=== PATIENT | female | born 1975 | race Caucasian/White ===

== ENCOUNTER 2016-12-11 23:27 | Emergency (ER) | payer SELFPAY ==
[~2016-12-11] VITALS: Ht 167.6 cm; Wt 114.7 kg
[~2016-12-11 23:27] MED LIST: CLIN-89 PO; HYDR-4246 PO; OMEP-122 PO; SERT100T PO
[2016-12-11 23:46] VITALS: RESP 18; TEMP 98.9; Ht 167.6 cm; Wt 114.7 kg
[2016-12-12] MEDS ORDERED: FAMOTIDINE 20 MG in NORMAL SALINE 50 ML IV ONE ×2
[2016-12-12] MEDS ORDERED: DiphenhydrAMINE 50 MG/ML INJECTION IV ONE
--- NOTE | 2016-12-12 00:04 | ERPDOC ---
Departure Disposition Decision Date: December 12, 2016 Disposition Decision Time: 00:33 Disposition: 01 DISCHARGED HOME, SELF-CARE Impression Impression Impression: Primary Impression: Allergic reaction Encounter type: initial encounter Qualified Codes: T78.40XA - Allergy, unspecified, initial encounter Severity: Moderate Condition: Stable Seen By: Mid-level only Referrals: PANCHITO OTT MD (Family) Patient Instructions: General Allergic Reaction (ED) Problems/Meds/Labs Reviewed?: Yes Medications reviewed and manag: Yes Additional Instructions: I do want you to continue to take Benadryl and Pepcid at home. Take 25mg of the Benadryl every 6 hours as needed as well as Pepcid 20mg daily. Take the prednisone as prescribed as well. If you do not have improvement of your symptoms overall then please follow up with your primary care provider. If you have any worsening symptoms then return to ER. Follow up care ordered?: Yes Mental Status: Alert Scripts Prednisone (Prednisone) 20 Mg Tablet 20 MG PO BIDWM, #10 TAB 0 Refills Take 1 tablet, by mouth, 2 times a day with meals. Prov: MARLEEN HAMILTONAnnamarie Mathur APRN 12/12/16 HPI - Skin General General Chief Complaint: Allergic Reaction Stated Complaint: ALLERGIC REACTION Time Seen by Provider: 23:57 Source: patient, family Exam Limitations: no limitations HPI - Skin General Initial Comments She developed a rash on her arms and chest over the last 24-48 hours. Today has felt like she has had some swelling of her throat. No new lotions/soaps/meds/ foods that may be the source for the rash. Has never really had a reaction like this. Denies any dyspnea or wheezing. The rash does come and go in intensity and its itchy at times. Occurred At: home Onset: Gradual Duration: other (Over the last few days) Severity: moderate Location: torso, extremities Possible Cause: no cause identified Associated Symptoms: hives, rash, DENIES: blisters, change in skin texture, edema, fever, flushing, headache, jaundice, malaise, nasal congestion, numbness , pallor, paresthesia, petechiae, sore throat, swelling/mass/lumps, tingling Hx of Similar Symptoms: No Allergies: Coded Allergies: latex (Verified Allergy, Mild, RASH, 11/06/15) Penicillins (Verified Allergy, Unknown, HIVES, 11/06/15) fluconazole (Unverified Allergy, Unknown, HIVES, 11/06/15) tioconazole (Unverified Allergy, Unknown, VAGINAL IRRITATION, 11/06/15) Past History Past Medical History ENMT: allergies GI: GERD Female: UTI, , living children, para Psychological: depression Surgical History General: gallbladder Reproductive/: , tubal ligation Vaccines Hx Influenza Vaccination: Yes (05/22/2013) Hx Pneumococcal Vaccination: No Hx Tetanus, Diptheria, Pertuss: Yes (5-6 YEARS AGO) Social History # of Packs/Tins per Day: .5 Review of Systems Constitutional Constitutional: DENIES: chills, dizziness, fatigue, fever, weakness ENMT Ears: DENIES: drainage, pain Sinuses: DENIES: congestion, rhinorrhea Mouth/Throat: DENIES: change in voice, hoarsness, painful swallowing, scratchy throat, sore throat Cardiovascular Cardiac: DENIES: chest pain, orthopnea Rhythm/Rate: DENIES: irregular beat, palpitations Pulmonary Respiratory: DENIES: cough, dyspnea, sputum, tachypnea GI Upper Abdomen: DENIES: nausea, pain, vomiting Lower Abdomen: DENIES: constipation, diarrhea, pain Integumentary Skin: rash Neurological General: DENIES: headache, numbness, tingling, weakness Physical Exam General General Nourishment: well nourished, well developed, appears stated age, no acute distress, adult General Body Habitus: well groomed Vitals and Pain First Documented Vital Signs Date Time Temp Pulse Resp B/P Pulse Ox O2 Delivery O2 Flow Rate FiO2 12/11/16 23:46 98.9 86 18 161/87 99 Room Air Weight: Kilograms: Height (feet): 5 Height (inches): 6 Triage Pain Scale: RN VS reviewed by Provider: Yes Normal Exams: Neck: Full range of motion, without adenopathy, JVD, bruits or thyromegaly Chest/Resp: Clear all horne, with good airflow, and symmetry bilaterally CV: Regular rate and rhythm, without murmur or gallop, Pulses 2+ all extremities, capillary refill, <2 seconds all ext., no pedal edema noted Abdomen: Bowel sounds positive, soft, non-tender, non-distended, no hepatosplenomegaly, masses or bruits noted Lymphatic: No lymphadenopathy, or lymphedema noted Musculoskeletal: No tenderness, or deformity noted, good range of motion, all extremities Neurologic: Patient is alert, and oriented Psychiatric: Patient exhibits, appropriate attention, emotion and affect ENMT (brief) ENMT Brief: FOUND: TM clear, TM good light reflex, ear canals clear, mucosa moist, normal dentition, normal tonsils, NOT FOUND: lesions, nasal erythema, nasal exudate, nasal swelling, petechiae, pharnyx erythema, tonsillar deviation Integumentary (brief) Integumentary Brief: FOUND: rash (She has a generalized maculopapular rash on the arms and chest and back. There are a few small areas of hives on the anterior upper chest wall. ) Differential Diagnoses Considering: Cellulitis, Contact Dermatitis, Hives/Urticaria, Insect Sting, Viral Exanthem Progress Results/Orders Orders Procedure Category Date Status Time Iv Lock (Ed Only) EDM 12/12/16 Transmitted 00:00 Methylprednisolone PHA 12/12/16 Complete Sod Succ (Solu-Medrol 00:00 Diphenhydramine PHA 12/12/16 Complete (Benadryl) 00:00 Famotidine (Pepcid 20 PHA 12/12/16 Complete Mg Inj.) 00:00 Medications Current ED Medications Methylprednisolone Sodium Succinate (Solu-Medrol) 125 mg O ONCE IV Last administered on 12/12/16 00:15; Start 12/12/16 at 00:00; Stop 12/12/16 at 00:02 ; Status DC Diphenhydramine HCl 25 mg 25 mg O ONCE IV Last administered on 12/12/16 00:12 ; Start 12/12/16 at 00:00; Stop 12/12/16 at 00:02; Status DC Famotidine/Sodium Chloride (PEPCID 20 mg INJ./NS) 52 ml @ 100 mls/hr O ONCE IV Last administered on 12/12/16 00:17; Start 12/12/16 at 00:00; Stop at 00:31; Status DC Progress Progress She does feel improved after the medication given in ER. Will send her home with Rx for Prednisone and have her continue the Benadryl and the Pepcid at home. Follow up with PCP if any further concerns. NILO HAMILTON APRN December 12, 2016 00:04
[2016-12-12] MEDS ORDERED: PRED20TA PO (00:35)
--- NOTE | 2016-12-12 00:43 | NUR ---
IV PEPCID IV INFUSION COMPLETE AT THIS TIME.
[2016-12-12 00:48] VITALS: BP 139/69; PULSE 82; O2SAT 97
--- NOTE | 2016-12-12 00:48 | NUR ---
DEPART PT IS DISCHARGED AT THIS TIME, INSTRUCTIONS ARE REVIEWED AND UNDERSTANDING IS VOICED. PT LEAVES [facility]BU[facility] AT THIS TIME.
== END 2016-12-12 00:48 | disposition home or self-care (01) ==
LOC: ED 23:27
DX: L50.0 Allergic urticaria (principal)